=== PATIENT | female | born 1965 | race African-American/Black ===

== ENCOUNTER 2016-12-01 12:13 | Emergency (ER) | payer OTHER ==
[2016-12-01 12:18] VITALS: TEMP 97.8; BMI 22.4
--- NOTE | 2016-12-01 12:40 | PDOC ---
History of Present Illness <Eddie Dave - Last Filed: 12/01/16 12:39> - General History Source: Patient Exam Limitations: No Limitations - History of Present Illness Initial Comments: 12/01/16 13:15 The patient is a 50 year old female with past medical history of hypertension, uterine fibroids, s/p left oophorectomy and tubal ligation who presents to the ED with complaints of suprapubic pain that began a couple of days ago. The patient states that the symptoms are greater on the left side and are accompanied by headache, nausea, and diarrhea. 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 She denies any change in urination, dysuria, or hematuria. She reports treating her symptoms with Tylenol but receiving minimal relief. She denies any recent illness, fever, chills, nausea, vomiting, diarrhea , cough, shortness of breath, or chest pain. PCP: Tanvi Mtz <Twyla Talavera - Last Filed: 12/01/16 17:21> <Miriam Moise - Last Filed: 12/01/16 22:22> - General Chief Complaint: Pain Stated Complaint: PAIN Past History - Past Medical History HTN: Yes Suicide Attempt (Hx): No - Psycho/Social/Smoking Cessation Hx Anxiety: No Suicidal Ideation: No Smoking Status: No Smoking History: Never smoked Have you smoked in the past 12 months: No Number of Cigarettes Smoked Daily: 0 Information on smoking cessation initiated: No Hx Alcohol Use: No Drug/Substance Use Hx: No Substance Use Type: None <Eddie Dave - Last Filed: 12/01/16 12:39> <Twyla Talavera - Last Filed: 12/01/16 17:21> <Miriam Moise - Last Filed: 12/01/16 22:22> - Past Medical History Allergies/Adverse Reactions: Allergies Allergy/AdvReac Type Severity Reaction Status Date / Time No Known Drug Allergies Allergy Verified 12/01/16 12:15 Home Medications: Ambulatory Orders Losartan 50Mg/Hctz 12.5MG [Hyzaar -] 1 tab PO DAILY 12/01/16 Meclizine HCl [Travel Sickness] 25 mg PO ASDIR 12/01/16 Multivitamin [Poly-Vitamin] 1 each PO DAILY 12/01/16 Review of Systems - Review of Systems Able to Perform ROS?: Yes Comments:: 12/01/16 13:22 GENERAL/CONSTITUTIONAL: No fever or chills. No weakness. HEAD, EYES, EARS, NOSE AND THROAT: No change in vision. No ear pain or discharge. No sore throat. CARDIOVASCULAR: No chest pain or shortness of breath. RESPIRATORY: No cough, wheezing, or hemoptysis. GASTROINTESTINAL: Present: super pubic pain, nausea, diarrhea No vomiting or constipation. GENITOURINARY: No dysuria, frequency, or change in urination. MUSCULOSKELETAL: No joint or muscle swelling or pain. No neck or back pain. SKIN: No rash NEUROLOGIC: Present: headache No vertigo, loss of consciousness, or change in strength/sensation. ENDOCRINE: No increased thirst. No abnormal weight change. HEMATOLOGIC/LYMPHATIC: No anemia, easy bleeding, or history of blood clots. ALLERGIC/IMMUNOLOGIC: No hives or skin allergy. All Other Systems: Reviewed and Negative <Twyla Talavera - Last Filed: 12/01/16 17:21> *Physical Exam - Vital Signs Last Vital Signs Temp Pulse Resp BP Pulse Ox 97.8 F 69 18 151/94 100 12/01/16 12:16 12/01/16 12:16 12/01/16 12:16 12/01/16 12:16 12/01/16 12:16 <Eddie Dave - Last Filed: 12/01/16 12:39> - Vital Signs Last Vital Signs Temp Pulse Resp BP Pulse Ox 97.8 F 69 18 151/94 100 12/01/16 12:16 12/01/16 12:16 12/01/16 12:16 12/01/16 12:16 12/01/16 12:16 - Physical Exam Comments: 12/01/16 13:23 GENERAL: Awake, alert, and fully oriented, in no acute distress HEAD: No signs of trauma EYES: PERRLA, EOMI, sclera anicteric, conjunctiva clear ENT: Auricles normal inspection, hearing grossly normal, nares patent, oropharynx clear without exudates. Moist mucosa NECK: Normal ROM, supple, no lymphadenopathy, JVD, or masses LUNGS: Breath sounds equal, clear to auscultation bilaterally. No wheezes, and no crackles HEART: Regular rate and rhythm, normal S1 and S2, no murmurs, rubs or gallops ABDOMEN: Soft, bilateral superpubic tenderness, normoactive bowel sounds. No guarding, no rebound. No masses EXTREMITIES: Normal range of motion, no edema. No clubbing or cyanosis. No cords, erythema, or tenderness NEUROLOGICAL: Cranial nerves II through XII grossly intact. Normal speech, normal gait SKIN: Warm, Dry, normal turgor, no rashes or lesions noted. <Twyla Talavera - Last Filed: 12/01/16 17:21> - Vital Signs Last Vital Signs Temp Pulse Resp BP Pulse Ox 97.8 F 69 18 151/94 100 12/01/16 12:16 12/01/16 12:16 12/01/16 12:16 12/01/16 12:16 12/01/16 12:16 <Miriam Moise - Last Filed: 12/01/16 22:22> ED Treatment Course - LABORATORY CBC & Chemistry Diagram: 12/01/16 14:03 12/01/16 14:03 <Twyla Talavera - Last Filed: 12/01/16 17:21> - LABORATORY CBC & Chemistry Diagram: 12/01/16 14:03 12/01/16 14:03 - ADDITIONAL ORDERS Additional order review: Laboratory Results 12/01/16 12/01/16 12/01/16 14:03 14:03 14:03 INR 1.10 Sodium 140 Potassium 3.6 Chloride 100 Carbon Dioxide 28 Anion Gap 12 BUN 7 D Creatinine 0.5 L Creat Clearance w eGFR > 60 Random Glucose 78 Calcium 8.8 Total Bilirubin 0.4 D AST 18 ALT 14 D Alkaline Phosphatase 69 Total Protein 7.3 Albumin 3.6 Lipase 108 Urine Color Straw Urine Appearance Clear Urine pH 7.0 Ur Specific [place] 1.006 Urine Protein Negative Urine Glucose (UA) Negative Urine Ketones Negative Urine Blood 3+ H Urine Nitrite Negative Urine Bilirubin Negative Urine Urobilinogen Negative Ur Leukocyte Esterase Negative Urine RBC 5 Urine WBC 1 Ur Epithelial Cells Rare Urine Bacteria Rare Urine Mucus Rare 12/01/16 14:03 RBC 4.21 MCV 91.8 MCHC 34.3 RDW 12.8 MPV 8.6 Neutrophils % 50.9 Lymphocytes % 35.5 Monocytes % 8.0 Eosinophils % 4.1 Basophils % 1.5 - Medications Given in the ED: ED Medications Discontinued Medications Generic Name Dose Route Start Last Admin Trade Name Freq PRN Reason Stop Dose Admin Hydromorphone HCl 2 mg 12/01/16 13:09 12/01/16 14:02 Dilaudid Injection - IVPUSH 12/01/16 13:10 2 mg ONCE ONE Administration Sodium Chloride 1,000 mls @ 1,000 mls/hr 12/01/16 13:09 12/01/16 14:02 Normal Saline - IV 12/01/16 14:08 1,000 mls/hr ASDIR STA Administration Ondansetron HCl 8 mg 12/01/16 13:09 12/01/16 14:03 Zofran Injection IVPB 12/01/16 13:10 Not Given ONCE ONE Ondansetron HCl 8 mg 12/01/16 17:35 12/01/16 17:48 Zofran Injection IVPB 12/01/16 17:36 8 mg ONCE ONE Administration <Miriam Moise - Last Filed: 12/01/16 22:22> Medical Decision Making - Medical Decision Making 12/01/16 13:24 The patient is a 50 year old female with past medical history of hypertension, uterine fibroids, s/p left oophorectomy and tubal ligation who presents to the ED with complaints of superpubic pain that began a couple of days ago. The patient is diffusely tender in bilateral lower quadrant on exam. Will obtain: CT scan, urine, bloods Suspect for diverticulitis. <Twyla Talavera - Last Filed: 12/01/16 17:21> - Medical Decision Making 12/01/16 19:21 atient Name: Gloria Beckham THIS IS A PRELIMINARY REPORT FROM [facility] EXAM : CT abdomen and pelvis with intravenous and oral contrast IMAGES: 433 EXAM DATE AND TIME: 2016-12-01 17:33:42.0 REASON FOR EXAM: Lower abdominal pain COMPARISON: None. FINDINGS: There is dependent atelectasis at the lung bases The stomach is distended with retained contrast and there is thickening of the gastric antrum and pylorus possibly secondary to inflammation or malignancy without progression of contrast into the bowel concerning for gastroparesis or gastric outlet obstruction Multiple hepatic and bilateral renal cysts The upper abdominal visceral organs are otherwise unremarkable There is no bowel distention The appendix and terminal ileum are unremarkable Myomatous changes of the uterus. Left adnexal varicosities compatible with pelvic vein congestion 2 cm right ovarian cyst. Consider further evaluation with ultrasound Moderate distention of the urinary bladder, and normal in contour without thickening Trace ascites in the pelvis may be incidental physiologic fluid No loculated fluid collections or intra-abdominal free air THIS DOCUMENT HAS BEEN ELECTRONICALLY SIGNED 12/01/16 19:22 Pt signed out to me; labs normal; CT shows trace ascites and thickening of the stomach antrum. SHe will be asked to follow with her PMD and with GI. She has been given copies of her CT scan result and sono result. 12/01/16 22:21 Patient Name: Gloria Beckham THIS IS A PRELIMINARY REPORT FROM [facility] IMAGES: 26 EXAM DATE AND TIME: 2016-12-01 20:45:05.0 EXAM: ULTRASOUND PELVIS, COMPLETE AND DUPLEX SCAN PELVIS, INCOMPLETE Endometrial stripe complex 5 mm thick, consider further evaluation with tissue sampling if patient is not currently on hormone therapy. Endometrial calcification described by technologist but not clearly seen on available images. 2.3 cm uterine fibroid. No right ovarian torsion. Color flow with appropriate arterial waveforms. 1.8 cm and 1.5 cm cysts right ovary, advise follow-up. Left ovary surgically absent. No free fluid. Unremarkable visualized portion of bladder. THIS DOCUMENT HAS BEEN ELECTRONICALLY SIGNED <Miriam Moise - Last Filed: 12/01/16 22:22> *DC/Admit/Observation/Transfer - Attestations Physician Attestion: 12/01/16 12:39 I, Dr. Eddie Dave, attest that this document has been prepared under my direction and personally reviewed by me in its entirety. I further attest, that it accurately reflects all work, treatment, procedures and medical decision -making performed by me. <Eddie Dave - Last Filed: 12/01/16 12:39> - Attestations Scribe Attestion: 12/01/16 13:23 Documentation prepared by Twyla Talavera, acting as medical education coordinator for Eddie Dave DO. <Twyla Talavera - Last Filed: 12/01/16 17:21> - Discharge Dispostion Admit: No <Miriam Moise - Last Filed: 12/01/16 22:22> Diagnosis at time of Disposition: Abdominal pain - Discharge Dispostion Disposition: HOME Condition at time of disposition: Stable - Referrals Referrals: Tanvi Mtz MD [Primary Care Provider] - Bharath Segal MD [Staff Physician] - - Patient Instructions Printed Discharge Instructions: DI for Abdominal Pain-Adult
[2016-12-01] MEDS ORDERED: HYDROmorphone HCL CARPU-JECT 2 MG/1 ML DISP.SYRIN IVPUSH ONE (13:09)
[2016-12-01] MEDS ORDERED: SODIUM CHLORIDE 1,000 ML IV STA (13:09)
[2016-12-01] MEDS ORDERED: ONDANSETRON 4 MG/2 ML VIAL IVPB ONE ×2 (13:09→17:35)
[2016-12-01] MEDS ORDERED: ONDANSETRON *ODT* 4 MG TABLET SL ONE (13:24)
[2016-12-01] MEDS ORDERED: HYDROmorphone HCL CARPU-JECT 2 MG/1 ML DISP.SYRIN ONE (13:51)
[2016-12-01] MEDS ORDERED: ONDANSETRON *ODT* 4 MG TABLET ONE (13:52)
[2016-12-01 14:19] LABS: BASOPHIL 1.5 % (0-2.0); EOSINOPHIL 4.1 % (0-4.5); MCH 31.5 pg (25.7-33.7); MCHC 34.3 g/dl (32.0-36.0); MEAN CELL VOLUME 91.8 fl (80-96); MEAN PLT VOLUME 8.6 fl (7.5-11.1); NEUTROPHILS 50.9 % (42.8-82.8); PLATELET COUNT 256 K/MM3 (134-434); RDW 12.8 % (11.6-15.6); WHITE BLOOD COUNT 7.9 K/mm3 (4.0-10.0)
[2016-12-01 14:20] LABS: URINE APPEARANCE CLEAR; URINE BILIRUBIN NEGATIVE (NEGATIVE); URINE COLOR STRAW; URINE GLUCOSE (UA) NEGATIVE (NEGATIVE); URINE KETONE NEGATIVE (NEGATIVE); URINE LEUK ESTERASE NEGATIVE (NEGATIVE); URINE NITRITE NEGATIVE (NEGATIVE); URINE PROTEIN NEGATIVE (NEGATIVE); URINE UROBILINOGEN NEGATIVE E.U./dl (0.2-1.0)
[2016-12-01 14:32] LABS: URINE BLOOD 3+ (NEGATIVE)
[2016-12-01 14:40] LABS: URINE BACTERIA RARE /hpf (NONE SEEN); URINE MUCUS RARE; URINE RBC 5 /hpf (0-3); URINE WBC 1 /hpf (3-5)
[2016-12-01 14:45] LABS: INR 1.1 (0.82-1.09); PROTHROMBIN TIME (PATIENT) 12.1 SEC (9.98-11.88)
[2016-12-01 14:46] LABS: ALBUMIN 3.6 g/dl (3.4-5.0); ANION GAP 12 (8-16); CALCIUM 8.8 mg/dL (8.5-10.1); CO2 28 mmol/L (21-32); CREATININE 0.5 mg/dL (0.55-1.02); GLUCOSE,RANDOM 78 mg/dL (74-106); SGOT/AST 18 U/L (15-37); SGPT/ALT 14 U/L (12-78)
[2016-12-01 14:48] LABS: ALK PHOS 69 U/L (45-117); BILIRUBIN,TOTAL 0.4 mg/dL (0.2-1.0); TOT PROT 7.3 g/dl (6.4-8.2)
[2016-12-01] MEDS ORDERED: ONDANSETRON 4 MG/2 ML VIAL ONE (17:42)
[2016-12-01] MEDS ORDERED: KETOROLAC TROMETHAMINE 30 MG/1 ML VIAL IVPUSH ONE (22:32)
[2016-12-01] MEDS ORDERED: KETOROLAC TROMETHAMINE 30 MG/1 ML VIAL ONE (23:12)
[2016-12-01 23:21] VITALS: BP 140/75; PULSE 77
== END 2016-12-01 23:20 | disposition home or self-care (01) ==
LOC: JER 12:13
PROC: 3E033NZ Introduction of Analgesics, Hypnotics, Sedatives into Peripheral Vein, Percutaneous Approach (ICD-10-PCS; principal; 2016-12-01)
PROC: 3E0333Z Introduction of Anti-inflammatory into Peripheral Vein, Percutaneous Approach (ICD-10-PCS; 2016-12-01)
PROC: 3E033GC Introduction of Other Therapeutic Substance into Peripheral Vein, Percutaneous Approach (ICD-10-PCS; 2016-12-01)
DX: R10.30 Lower abdominal pain, unspecified (principal); I10 Essential (primary) hypertension; D25.9 Leiomyoma of uterus, unspecified
CPT/HCPCS: 36415; 74177-TC; 76856-TC; 80053; 81003; 81015; 83690; 85025; 85610; 87086; 96374; 96375; 99285-25

== ENCOUNTER 2017-01-29 08:36 | Emergency (ER) | payer OTHER ==
[2017-01-29 08:43] VITALS: TEMP 98.1; BMI 22.4
[2017-01-29] MEDS ORDERED: RANITIDINE HCL 150 MG TABLET (FP) PO ONE (09:21)
[2017-01-29] MEDS ORDERED: MAG HYDROX/AL HYDROX/SIMETH 30 ML UNIT-DOSE CUP PO ONE (09:22)
[2017-01-29] MEDS ORDERED: MECLIZINE HCL 25 MG TABLET (FP) PO ONE (09:22)
[2017-01-29] MEDS ORDERED: MAG HYDROX/AL HYDROX/SIMETH 30 ML UNIT-DOSE CUP ONE (09:23)
[2017-01-29] MEDS ORDERED: LOSARTAN 50MG/HCTZ 12.5MG 1 TAB (FP) PO ONE (09:23)
[2017-01-29] MEDS ORDERED: RANITIDINE HCL 150 MG TABLET (FP) ONE (09:23)
[2017-01-29] MEDS ORDERED: MECLIZINE HCL 25 MG TABLET (FP) ONE (09:23)
[2017-01-29] MEDS ORDERED: HYDROCHLOROTHIAZIDE 25 MG TABLET (FP) ONE (09:24)
[2017-01-29] MEDS ORDERED: LOSARTAN POTASSIUM 25 MG TABLET ONE (09:25)
[2017-01-29] MEDS ORDERED: LOSARTAN POTASSIUM 50 MG TABLET (FP) PO ONE (09:29)
[2017-01-29] MEDS ORDERED: HYDROCHLOROTHIAZIDE 12.5 MG CAPSULE (FP) PO ONE (09:29)
--- NOTE | 2017-01-29 09:31 | PDOC ---
History of Present Illness - General Chief Complaint: Lightheaded Stated Complaint: DIZZINESS Time Seen by Provider: 01/29/17 08:44 History Source: Patient - History of Present Illness Timing/Duration: other (this am) Associated Symptoms: reports: headaches. denies: fever/chills, nausea/vomiting , syncope, weakness Past History - Past Medical History Allergies/Adverse Reactions: Allergies Allergy/AdvReac Type Severity Reaction Status Date / Time No Known Drug Allergies Allergy Verified 01/29/17 08:43 Home Medications: Ambulatory Orders Meclizine HCl [Travel Sickness] 25 mg PO ASDIR 12/01/16 Multivitamin [Poly-Vitamin] 1 each PO DAILY 12/01/16 Losartan 50Mg/Hctz 12.5MG [Hyzaar -] 1 tab PO DAILY #30 tab 01/29/17 Omeprazole 20 mg PO DAILY #30 capsule. 01/29/17 HTN: Yes Suicide Attempt (Hx): No - Reproductive History Polycystic Ovaries: Yes - Psycho/Social/Smoking Cessation Hx Anxiety: No Suicidal Ideation: No Smoking Status: No Smoking History: Never smoked Have you smoked in the past 12 months: No Number of Cigarettes Smoked Daily: 0 Hx Alcohol Use: No Drug/Substance Use Hx: No Substance Use Type: None Review of Systems - Review of Systems HEENTM: No: Blurred Vision Respiratory: No: Shortness of Breath Cardiac (ROS): No: Chest Pain ABD/GI: No: Nausea, Vomiting Neurological: Yes: Headache, Dizziness. No: Weakness *Physical Exam - Vital Signs Last Vital Signs Temp Pulse Resp BP Pulse Ox 98.1 F 83 20 149/103 98 01/29/17 08:39 01/29/17 08:39 01/29/17 08:39 01/29/17 08:39 01/29/17 08:39 - Physical Exam General Appearance: Yes: Appropriately Dressed. No: Apparent Distress HEENT: positive: Normal Voice Neck: positive: Supple Respiratory/Chest: positive: Lungs Clear, Normal Breath Sounds. negative: Respiratory Distress Cardiovascular: positive: Regular Rate, S1, S2 Gastrointestinal/Abdominal: positive: Tender (minimal ttp to epigastrium, no RUQ tenderness), Soft Musculoskeletal: negative: CVA Tenderness Extremity: positive: Normal Inspection Integumentary: positive: Dry, Warm Neurologic: positive: Fully Oriented, Alert, Normal Mood/Affect, Motor Strength 5/5, Finger to Nose. negative: Facial Droop (no nystagmus, Symone intact, no ataxia, no drift) Heart Score/ECG Review - ECG Intrepretation Comment:: 01/29/17 09:48 Twelve-lead EKG was performed and reviewed by me. There is normal sinus rhythm with a normal rate. The axis is normal. The intervals are normal. There are no ST or T wave abnormalities. Impression: Normal twelve-lead EKG Medical Decision Making - Medical Decision Making 01/29/17 09:26 51-year-old female history of GERD, hypertension, vertigo on meclizine here with sensation of room spinning this am, consistent with her vertigo. Did not take her meclizine this am "because I didn't eat" as per pt. Also complaining of mild diffuse headache, which she sometimes get with her vertigo per pt. No n /v, visual changes, slurred speech or focal weakness. Denies chest pain or shortness of breath. Has had multiple ED visits for vertigo in the past with negative CT See exam Recurrent vertigo H/o same on meclizine but did not take meds this am Hypertensive in ED but well kamaljit w/ no focal deficits -meclizine/reassess HTN BP 149/103 in ED Ran out of her meds yesterday No CP/SOB -BP management in ED>reassess 01/29/17 09:32 01/29/17 09:34 01/29/17 10:58 Pt reports feeling significantly better and requesting discharge. BP improved. Refill for BP meds sent to pharmacy. PMD f/u 01/29/17 11:05 *DC/Admit/Observation/Transfer Diagnosis at time of Disposition: Vertigo - Discharge Dispostion Disposition: HOME Condition at time of disposition: Improved - Prescriptions Prescriptions: Losartan 50Mg/Hctz 12.5MG [Hyzaar -] 1 tab PO DAILY #30 tab Omeprazole 20 mg PO DAILY #30 capsule.dr - Patient Instructions Printed Discharge Instructions: Vertigo Additional Instructions: Take your medications as directed and follow up with your PMD
--- NOTE | 2017-01-29 10:16 | PDOC ---
*Physical Exam - Vital Signs Last Vital Signs Temp Pulse Resp BP Pulse Ox 98.1 F 83 20 149/103 98 01/29/17 08:39 01/29/17 08:39 01/29/17 08:39 01/29/17 08:39 01/29/17 08:39 ED Treatment Course - Medications Given in the ED: ED Medications Discontinued Medications Generic Name Dose Route Start Last Admin Trade Name Gigiq PRN Reason Stop Dose Admin Al Hydroxide/Mg Hydroxide 30 ml 01/29/17 09:22 01/29/17 09:29 Mylanta Oral Suspension - PO 01/29/17 09:23 30 ml ONCE ONE Administration HCTZ/Losartan Potassium 1 tab 01/29/17 09:23 01/29/17 09:31 Hyzaar - PO 01/29/17 09:24 Not Given ONCE ONE Hydrochlorothiazide 12.5 mg 01/29/17 09:29 01/29/17 09:31 Hctz - PO 01/29/17 09:30 12.5 mg ONCE ONE Administration Losartan Potassium 50 mg 01/29/17 09:29 01/29/17 09:31 Cozaar - PO 01/29/17 09:30 50 mg ONCE ONE Administration Meclizine HCl 25 mg 01/29/17 09:22 01/29/17 09:29 Antivert - PO 01/29/17 09:23 25 mg ONCE ONE Administration Ranitidine HCl 150 mg 01/29/17 09:21 01/29/17 09:29 Zantac - PO 01/29/17 09:22 150 mg ONCE ONE Administration Medical Decision Making - Medical Decision Making 01/29/17 10:15 Patient seen and evaluated with the nurse practitioner. I agree with the overall evaluation, assessment, and management with the following summary of visit: 51y/o F with acute exacerbation of recurring vertigo, negative evaluations in the past. exam as noted, no focal deficit trial of meds, no indication for emergent imaging, reassess
[2017-01-29 10:54] VITALS: BP 148/79; PULSE 79
--- NOTE | 2017-01-30 16:33 | EKG ---
Test Reason : Blood Pressure : / mmHG Vent. Rate : 064 BPM Atrial Rate : 064 BPM P-R Int : 154 ms QRS Dur : 088 ms QT Int : 418 ms P-R-T Axes : 052 025 042 degrees QTc Int : 431 ms NORMAL SINUS RHYTHM NORMAL ECG WHEN COMPARED WITH ECG OF 19-AUG-2016 20:04, NO SIGNIFICANT CHANGE WAS FOUND Confirmed by TIMOTHY PASTRANA MD ([id number]) on 01/30/2017 4:33:03 PM Referred By: Confirmed By:TIMOTHY PASTRANA MD
== END 2017-01-29 11:12 | disposition home or self-care (01) ==
LOC: JER 08:36
DX: R42 Dizziness and giddiness (principal); I10 Essential (primary) hypertension
CPT/HCPCS: 93005; 93010; 99282-25

== ENCOUNTER 2017-12-30 09:53 | Emergency (ER) | payer OTHER ==
[2017-12-30 10:01] VITALS: BMI 22.6
[2017-12-30] MEDS ORDERED: morphine CARPU-JECT 4 MG/1 ML DISP.SYRIN IVPUSH ONE (10:16)
[2017-12-30] MEDS ORDERED: ONDANSETRON 4 MG/2 ML VIAL IVPUSH ONE (10:17)
[2017-12-30] MEDS ORDERED: SODIUM CHLORIDE 1,000 ML IV STA (10:17)
--- NOTE | 2017-12-30 10:17 | PDOC ---
History of Present Illness - General Chief Complaint: Pain, Acute Stated Complaint: ABD PAIN (RAD SENT) Time Seen by Provider: 12/30/17 10:07 - History of Present Illness Initial Comments: 12/30/17 10:20 The patient is a 51 year old female with a history of HTN who presents for evaluation of abdominal pain. The patient was undergoing a routine CT abdomen/ pelvis on an outpatient basis for hematuria and began having severe lower abdominal pain following administration of iv contrast prompting her presentation to the ED for evaluation. The patient reports severe poorly described lower abdominal pain with some associated nausea. She otherwise denies fevers, chills, SOB, chest pain, vomiting, or changes with urination or bowel movements. She notes that she has used the bathroom normally 3 times today thus far. Past History - Past Medical History Allergies/Adverse Reactions: Allergies Allergy/AdvReac Type Severity Reaction Status Date / Time No Known Drug Allergies Allergy Verified 12/30/17 09:56 Home Medications: Ambulatory Orders Meclizine HCl [Travel Sickness] 25 mg PO ASDIR 12/01/16 Multivitamin [Poly-Vitamin] 1 each PO DAILY 12/01/16 Losartan 50Mg/Hctz 12.5MG [Hyzaar -] 1 tab PO DAILY #30 tab 01/29/17 Cephalexin Monohydrate [Keflex -] 500 mg PO BID #20 capsule 12/30/17 Phenazopyridine HCl [Pyridium -] 100 mg PO DAILY #14 tablet 12/30/17 COPD: No HTN: Yes - Reproductive History Polycystic Ovaries: Yes - Suicide/Smoking/Psychosocial Hx Smoking Status: No Smoking History: Never smoked Have you smoked in the past 12 months: No Number of Cigarettes Smoked Daily: 0 Hx Alcohol Use: No Drug/Substance Use Hx: No Substance Use Type: None Review of Systems - Review of Systems Comments:: 12/30/17 10:22 Constitutional: No fevers, chills, fatigue, malaise HEENT: No Rhinorrhea, nasal congestion, visual changes Cardiovascular: No chest pain, syncope, palpitations, lightheadedness Respiratory: No Cough, SOB, Hemoptysis, Gastrointestinal: Lower abdominal pain, Nausea. No Vomiting, Constipation, Diarrhea, Melena Genitourinary: No Dysuria, Frequency, Urgency, Hesitancy, Hematuria, Flank pain Musculoskeletal: No Myalgia, arthralgia Skin: No rashes, itching, bruising, pallor Neurologic: No Headache, Dizziness, Numbness, Weakness, or Tingling Psychiatric: No Hallucinations. No SI or HI *Physical Exam - Vital Signs Last Vital Signs Temp Pulse Resp BP Pulse Ox 97.6 F 75 22 131/88 100 12/30/17 09:56 12/30/17 09:56 12/30/17 09:56 12/30/17 09:56 12/30/17 09:56 - Physical Exam Comments: 12/30/17 10:22 General Appearance: Nourished. In Moderate Apparent Distress HEENT: EOMI, MESFIN. No Pharyngeal Erythema, Tonsillar Exudate, Tonsillar Erythema Neck: No Cervical Lymphadenopathy Respiratory/Chest: Lungs Clear, Normal Breath Sounds. No Crackles, Rales, Rhonchi, Wheezing Cardiovascular: Regular Rhythm, Regular Rate. No Murmur, Gallops, Rubs Gastrointestinal/Abdominal: Normal Bowel Sounds, Soft. Suprapubic tenderness to palpation on exam. No Guarding, Rebound, Musculoskeletal: No CVA Tenderness Extremity: Normal Capillary Refill Integumentary: Normal Color, Dry, Warm Neurologic: Fully Oriented, Alert, Normal Mood/Affect, Normal Response, ED Treatment Course - LABORATORY CBC & Chemistry Diagram: 12/30/17 10:40 12/30/17 10:40 Medical Decision Making - Medical Decision Making 12/30/17 10:23 The patient is a 51 year old female with a history of HTN who presents for evaluation of abdominal pain. Differential includes but is not limited to: Renal Colic, UTI, Cystitis, Spasm, Infectious, Metabolic Derangement. Given the patient's history and physical exam, we will obtain a cbc, cmp, ua to evaluate further and follow up with the patient's CT scan performed just prior to presentation. In the meantime, we will treat the patient with iv fluids, morphine, and zofran. We will continue to monitor and reassess while here in the ED. 12/30/17 11:55 CBC was unremarkable. CMP demonstrated a low potassium to 3.2. UA demonstrates positive leuk esterase with 12 wbc and [address] abdomen/pelvis demonstrates bilateral renal cysts, liver cysts, and uterine fibroid as read by our radiologist, but no acute pathology. We will repleat the patient's potassium here in the ED. The patient's UA is concerning for a possible UTI as the source of her pain. We will treat with pyridium and keflex here in the ER. We are comfortable discharging the patient home at this time on pyridium and keflex with follow up with Dr. Kat. We discussed the results, plan and return precautions with the patient who voiced understanding and is agreeable with the plan. *DC/Admit/Observation/Transfer Diagnosis at time of Disposition: UTI (urinary tract infection) Qualifiers: Urinary tract infection type: site unspecified Hematuria presence: with hematuria Qualified Code(s): N39.0 - Urinary tract infection, site not specified Abdominal pain Qualifiers: Abdominal location: unspecified location Qualified Code(s): R10.9 - Unspecified abdominal pain - Discharge Dispostion Disposition: HOME Condition at time of disposition: Good Admit: No - Prescriptions Prescriptions: Cephalexin Monohydrate [Keflex -] 500 mg PO BID #20 capsule Phenazopyridine HCl [Pyridium -] 100 mg PO DAILY #14 tablet - Referrals Referrals: Anton Kat MD [Staff Physician] - - Patient Instructions Printed Discharge Instructions: DI for Urinary Tract Infection (UTI), DI for Abdominal Pain-Adult Additional Instructions: Please return to the ER if you experience concerning or worsening symptoms including worsening pain, fevers, or vomiting. Your lab results were normal here in the ER. Your urine showed a possible urinary tract infection. We have sent a prescription for antibiotics and a medication to help manage your symptoms to your pharmacy that you should take as directed. It is important that you call to schedule a follow up appointment with your urologist Dr. Kat within 2-3 days to discuss your ER visit and further management of your symptoms. Por favor, regrese a la adriana de emergencias si experimenta problemas o empeoramiento de los sntomas, incluyendo el empeoramiento del dolor, fiebres o vmitos. Los resultados de tu laboratorio fueron normales aqu en urgencias. Delarosa orina mostr ronna posible infeccin del tracto urinario. Hemos enviado ronna prescripci n para los antibiticos y un medicamento para ayudar a manejar francis sntomas a delarosa farmacia que usted debe liban segn lo indicado. Es importante que usted llame para programar ronna werner de seguimiento con delarosa urlogo Dr. Kat dentro de 2-3 carbone para discutir delarosa visita de ER y la administracin adicional de francis sntomas. Print Language: PASHTO - Post Discharge Activity
[2017-12-30] MEDS ORDERED: ONDANSETRON 4 MG/2 ML VIAL ONE (10:19)
[2017-12-30] MEDS ORDERED: morphine SULFATE 4 MG/ML VIAL ONE (10:19)
--- NOTE | 2017-12-30 10:39 | PDOC ---
Attending Attestation - HPI HPI: 12/30/17 11:34 Pt is a 51 yo F with a PMHx of HTN, HLD, uterine fibroids who presents to the ED with sudden onset of abdominal pain today. Patient was at [facility] CT suite when she suddenly experience lower abdominal pain immediately after administration of IV contrast. Patient had previously experienced hematuria and was sent by her PCP for additional imaging. Patient denies fever, chills, chest pain, nausea , vomiting, diarrhea. PCP: Dr. Mtz. - Physicial Exam PE: 12/30/17 11:35 Vitals: Triage Vital signs reviewed General Appearance: no acute distress, well nourished well developed, Head: Atraumatic, normocephalic Neck: Supple;No Nuchal rigidity Chest Wall: Nontender Cardiac: Regular rate and rhythm, no murmurs, no rubs, no gallops, Lungs: Clear to auscultation bilateral, good air movement bilaterally, Abdomen: Soft, nondistended, normal bowel sounds, nontender to palpation Extremities: Full range of motion to all extremities, no cyanosis, clubbing, or edema Skin: Warm and dry, no rashes or lesions, no petechiae - Medical Decision Making 12/30/17 11:35 Documentation prepared by Norma Morris, acting as medical driver for Dimas Lee MD <Norma Morris - Last Filed: 12/30/17 11:34> - Resident Resident Name: Arturo Weaver - ED Attending Attestation I have performed the following: I have examined & evaluated the patient, The case was reviewed & discussed with the resident, I agree w/resident's findings & plan, Exceptions are as noted - Medical Decision Making Pt is a 51 yo F with a PMHx of HTN, HLD, uterine fibroids who presents to the ED with sudden onset of abdominal pain today. Patient was at [facility] CT suite when she suddenly experience lower abdominal pain immediately after administration of IV contrast. Patient had previously experienced hematuria and was sent by her PCP for additional imaging. Patient denies fever, chills, chest pain, nausea , vomiting, diarrhea. CAT scan with no acute findings. Labs within normal limits. Patient feels much better. Some evidence of UTI and examined this may represent bladder spasm Patient well-appearing repeat abdominal examination benign Findings, the need for follow-up, strict return instructions discussed with patient. <Dimas Lee - Last Filed: 12/30/17 14:15>
[2017-12-30 10:51] LABS: BASO % 0.6 % (0-2.0); HEMATOCRIT 34.5 % (32.4-45.2); HEMOGLOBIN 12.1 GM/dL (10.7-15.3); LYMPH % 39.4 % (8-40); MCH 32.8 pg (25.7-33.7); MEAN CELL VOLUME 93.7 fl (80-96); MEAN PLT VOLUME 8.6 fl (7.5-11.1); MONO % 5.3 % (3.8-10.2); NEUT % 52.7 % (42.8-82.8); PLATELET COUNT 225 K/MM3 (134-434); RBC 3.69 M/mm3 (3.60-5.2); WHITE BLOOD COUNT 4.4 K/mm3 (4.0-10.0)
[2017-12-30 11:24] LABS: ALBUMIN 3.4 g/dl (3.4-5.0); ALK PHOS 47 U/L (45-117); ANION GAP 4 (8-16); BILIRUBIN,TOTAL 0.3 mg/dL (0.2-1.0); BLOOD UREA NITROGEN 9 mg/dL (7-18); CHLORIDE 108 mmol/L (98-107); CO2 29 mmol/L (21-32); CREATININE 0.5 mg/dL (0.55-1.02); GLUCOSE,RANDOM 82 mg/dL (74-106); POTASSIUM 3.2 mmol/L (3.5-5.1); SGOT/AST 19 U/L (15-37); SGPT/ALT 14 U/L (12-78); SODIUM 141 mmol/L (136-145); TOT PROT 6.6 g/dl (6.4-8.2)
[2017-12-30 11:35] LABS: URINE APPEARANCE SLCLOUDY; URINE BILIRUBIN NEGATIVE (<2.0 mg/dL); URINE BLOOD 2+ (NEGATIVE); URINE COLOR LTYELLOW; URINE GLUCOSE (UA) NEGATIVE (NEGATIVE); URINE KETONE NEGATIVE (NEGATIVE); URINE LEUK ESTERASE 2+ (NEGATIVE); URINE NITRITE NEGATIVE (NEGATIVE); URINE PROTEIN NEGATIVE (NEGATIVE); URINE UROBILINOGEN NEGATIVE mg/dL (0.2-1.0)
[2017-12-30 11:39] LABS: EPI CELLS FEW /HPF (FEW); URINE MUCUS RARE
[2017-12-30] MEDS ORDERED: CEPHALEXIN MONOHYDRATE 500 MG CAPSULE (UD) PO ONE (11:46)
[2017-12-30] MEDS ORDERED: POTASSIUM CHLORIDE TABS 20 MEQ TABLET.ER (FP) PO ONE ×2 (11:46→12:35)
[2017-12-30] MEDS ORDERED: PHENAZOPYRIDINE HCL 100 MG TABLET (FP) PO ONE (11:46)
[2017-12-30] MEDS ORDERED: CEPHALEXIN MONOHYDRATE 500 MG CAPSULE (UD) ONE (12:35)
[2017-12-30] MEDS ORDERED: PHENAZOPYRIDINE HCL 100 MG TABLET (FP) ONE (12:35)
[2017-12-30 12:55] VITALS: BP 132/89; PULSE 80; TEMP 97.7
== END 2017-12-30 12:55 | disposition home or self-care (01) ==
LOC: JER 09:53
PROC: 3E033GC Introduction of Other Therapeutic Substance into Peripheral Vein, Percutaneous Approach (ICD-10-PCS; principal; 2017-12-30)
PROC: 3E0337Z Introduction of Electrolytic and Water Balance Substance into Peripheral Vein, Percutaneous Approach (ICD-10-PCS; 2017-12-30)
PROC: 3E033NZ Introduction of Analgesics, Hypnotics, Sedatives into Peripheral Vein, Percutaneous Approach (ICD-10-PCS; 2017-12-30)
DX: N39.0 Urinary tract infection, site not specified (principal); R10.9 Unspecified abdominal pain; I10 Essential (primary) hypertension
CPT/HCPCS: 36415; 80053; 81003; 81015; 85025; 87086; 96361; 96374; 96375; 99282-25; J7030